=== PATIENT | female | born 1975 | race Caucasian/White ===

== ENCOUNTER 2018-02-01 17:03 | Emergency (ER) | payer OTHER ==
[~2018-02-01] VITALS: Ht 154.9 cm; Wt 58.1 kg
[2018-02-02] MEDS ORDERED: KETO10TA2 PO (02:57)
== END 2018-02-02 03:02 | disposition home or self-care (01) ==
LOC: ER 17:03
DX: K59.09 Other constipation (principal); N83.291 Other ovarian cyst, right side